=== PATIENT | male | born 1960 | race Caucasian/White ===

== ENCOUNTER 2020-05-29 10:05 | Observation (INO) | payer BC, SELFPAY ==
[2020-05-29] VITALS (16 sets, daily range): BP systolic 133–166; BP diastolic 72–88; PULSE 61–71; RESP 12–22; TEMP 36.2–37; O2SAT 94–100; BMI 33.5; BMI 31.9
--- NOTE | 2020-05-29 10:14 | DI.CT.S_ITS ---
PROCEDURE: CT STROKE INDICATIONS: Right-sided numbness TECHNIQUE: Noncontrast 4.5 mm thick angled axial sections acquired from the foramen magnum to the vertex, with coronal reformats. For radiation dose reduction, the following was used: automated exposure control, adjustment of mA and/or kV according to patient size. COMPARISON: None. FINDINGS: Image quality: Excellent. CSF spaces: Basal cisterns are patent. No extra-axial fluid collections. Ventricles are normal in size and shape. Brain: There is a prominent vessel in the left frontal lobe medially. No midline shift. No intracranial masses or hemorrhage. Rousseau-white matter interface is normal. Skull and face: Calvarium and visualized facial bones are intact, without suspicious lesions. Sinuses: Visualized sinuses and mastoids are clear. IMPRESSION: 1. No acute intracranial abnormalities. 2. Prominent vessel in the left frontal lobe medially. Differential diagnoses include touches left anterior cerebral artery or developmental venous anomaly. CT cerebral angiogram was already requested. This study fulfills neurological imaging criteria for inclusion or exclusion of acute stroke therapies based on available published neurological imaging guidelines. Dictated by: Adalgisa Ashley M.D. on 05/29/2020 at 10:40 Approved by: Adalgisa Ashley M.D. on 05/29/2020 at 10:45
--- NOTE | 2020-05-29 10:15 | ED_ITS ---
HPI - Neuro Symptoms/Deficit General Chief Complaint: Neuro Symptoms/Deficit Stated Complaint: R Arm, Face, Tongue Numbness Time Seen by Provider: 05/29/20 10:06 Source: patient and EMS Mode of arrival: EMS History of Present Illness HPI Narrative: Patient brought in by EMS. Onset 1 hour ago of right tongue numbness as well as complete right arm numbness. No weakness. No slurred speech or facial droop. Had 1 episode yesterday evening 7:00 p.m. that lasted 20 minutes. Denies any medical history. No high blood pressure or diabetes. No family history of strokes. On Anticoagulants: No Related Data Home Medications Medication Instructions Recorded Confirmed dextroamphetamine-amphetamine 10 mg PO QAM 05/29/20 05/29/20 [Adderall XR] Allergies Allergy/AdvReac Type Severity Reaction Status Date / Time doxycycline Allergy Severe Rash Verified 05/29/20 10:14 Review of Systems Review of Systems Narrative: GENERAL: Denies chills, fatigue, malaise, fever, sweats. HEENT: Denies sinus pain, ear pain, sore throat, difficulty swallowing RESPIRATORY: Denies dyspnea, cough CARDIOVASCULAR: Denies chest pain, palpitations, edema, GASTROINTESTINAL: Denies nausea, vomiting, abdominal pain, diarrhea, constipation, melena. : Denies dysuria, frequency, hematuria MUSCULOSKELETAL: denies muscle or bony pain SKIN: Denies rash, skin lesions NEUROLOGIC: Denies weakness, headache, complains numbness, denies change in speech, confusion PSYCHIATRIC: No SI or HI or hallucinations ROS Unobtainable: All systems reviewed & are unremarkable except as noted in HPI and below Patient History Medical History Attention deficit disorder (Acute) GERD (gastroesophageal reflux disease) (Acute) Ocular migraine (Acute) Surgical History History of colonoscopy (Acute) History of umbilical hernia repair (Acute) History of vein stripping (Acute) Family History (Updated 05/30/20 @ 04:41 by CALEB Gracia) Father Cardiovascular disease Mother Asthma Post-polio syndrome Coronary artery disease Social History household members: spouse Smoking Status: Never smoker alcohol intake: current Smoking Status: Never smoker Substance Use Type: does not use Exam Narrative Exam Narrative: GENERAL: patient appears stated age. Well-nourished, well-developed patient, in no distress, not toxic not dyspneic HEAD: Normocephalic. EYES: Pupils equal round and reactive. No scleral icterus. No injection no discharge ENT: Mucous membranes moist. No drooling no tongue elevation no trismus no malocclusion NECK: Trachea midline. Non tender CARDIOVASCULAR: Regular rate and rhythm without murmurs, gallops, or rubs. RESPIRATORY: Clear to auscultation. Breath sounds equal bilaterally. No wheezes, rales, or rhonchi. GASTROINTESTINAL: Abdomen soft, non-tender, nondistended. EXTREMITIES: No gross deformities. BACK: Nontender without deformity or crepitance. No flank tenderness. NEURO: AOx4. Clear speech no facial droop there is light touch deficit on the right arm and hand. Otherwise light touch intact to left upper extremity bilateral legs and face. 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 Negative right drift. Finger- nose intact bilaterally. SKIN: Warm and dry PSYCH: Not anxious, is cooperative Initial Vital Signs Initial Vital Signs: Vital Signs Temperature 98.0 F 05/29/20 10:11 Pulse Rate 70 05/29/20 10:11 Respiratory Rate 16 05/29/20 10:11 Blood Pressure 152/72 H 05/29/20 10:11 Pulse Oximetry 98 05/29/20 10:11 Scores NIH Stroke Scale Level of Conciousness: Alert, keenly responsive Ask month/age: Answers both questions correctly. Open/close eyes, close hand: Performs both tasks correctly Best gaze horizontal: Normal Visual del angel: No visual loss Facial palsy: Normal symetrical movement Left arm drift: No drift for full 10 sec Right arm drift: No drift for full 10 sec Left leg drift: No drift for full 5 sec Right leg drift: No drift for full 5 sec Limb ataxia: Absent Sensory on face/arms/legs: Mild to moderate sensory loss, can tell touch Best language: No aphasia, normal Dysarthria: Normal Extinction or inattention: No abnormality Total NIH Stroke scale score: 1 Course Course Course Narrative: Time 10:39 a.m., spoke with radiologist CT head without contrast no acute process. Decision to Admit Date: 05/29/20 Decision to Admit time: 12:24 Orders Ordered: Discontinued Medications Acetaminophen (Tylenol) 650 mg PO Q6HR PRN PRN Reason: Fever Al Hydrox/Mg Hydrox/Simethicone (Maalox Plus) 30 ml PO Q6HR PRN PRN Reason: Dyspepsia Aspirin (Aspirin Chew) 324 mg PO NOW ONE Stop: 05/29/20 10:41 Last Admin: 05/29/20 11:47 Dose: 324 mg Documented by: TICO Aspirin (Aspirin Ec) 81 mg PO DAILY [facility] Last Admin: 05/30/20 09:20 Dose: 81 mg Documented by: CRISTO Atorvastatin Calcium (Lipitor) 40 mg PO BEDTIME [facility] Last Admin: 05/29/20 21:12 Dose: 40 mg Documented by: YESSY Bisacodyl (Dulcolax) 10 mg NM DAILY PRN PRN Reason: Constipation Calcium Carbonate (Tums) 1,000 mg PO Q4HR PRN PRN Reason: Dyspepsia Enoxaparin Sodium (Lovenox) 40 mg SUBCUT DAILY [facility] Last Admin: 05/30/20 09:20 Dose: 40 mg Documented by: CRISTO Sodium Chloride (Normal Saline 0.9%) 500 mls @ 1,000 mls/hr IV BOLUS ONE Stop: 05/29/20 10:44 Last Infusion: 05/29/20 16:30 Dose: 0 mls/hr Documented by: Admin: 05/29/20 11:48 Dose: 1,000 mls/hr Documented by: TICO Melatonin (Melatonin) 9 mg PO BEDTIME [facility] Last Admin: 05/29/20 22:32 Dose: 9 mg Documented by: NIKKI Naloxone HCl (Narcan) 0.2 mg IV Q2MIN PRN PRN Reason: Opiate Reversal Ondansetron HCl (Zofran) 4 mg IV Q8HR PRN PRN Reason: Nausea And Vomiting Sodium Chloride (Normal Saline 0.9% Flush) 10 ml IV BID [facility] Last Admin: 05/30/20 09:20 Dose: 10 ml Documented by: Admin: 05/29/20 21:12 Dose: 10 ml Documented by: YESSY Reevaluation(s) Reevaluation #1: No new changes. No new issues. Reviewed with patient and understands admission Time: 12:25 Consultations Consultation #1: Spoke with stroke physician, on-call with Dr. Allie Reed... At this time likely no tPA as given low score in symptoms. He will see patient by video now. Time: 11:14 Consultation #2: Spoke with stroke physician Dr. Kelley, he has completed video evaluation of patient. No slurred speech. Vision is baseline. Admit here MRI and echo Time: 11:33 Consultation #3: Spoke with Dr. Gonzalez, hospitalist, will admit Time: 12:25 Vital Signs Vital signs: Vital Signs - 8 hr 05/29/20 10:11 05/29/20 10:27 05/29/20 10:30 Temperature 98.0 F Pulse Rate 70 67 67 Respiratory Rate 16 14 Blood Pressure 152/72 H Pulse Oximetry 98 99 97 05/29/20 10:51 05/29/20 11:00 05/29/20 11:35 Temperature Pulse Rate 64 63 64 Respiratory Rate 12 21 Blood Pressure 142/76 H 140/75 Pulse Oximetry 99 99 99 05/29/20 11:36 Temperature Pulse Rate 61 Respiratory Rate 14 Blood Pressure 161/78 H Pulse Oximetry 98 MDM - Neuro Symptoms/Deficit Differential Diagnosis Differential diagnosis: Likely cerebrovascular accident and transient cerebral ischemia Lab Data Attestation: I reviewed the patient's lab results. Result diagrams: 05/30/20 05:53 05/30/20 05:53 Labs: Lab Results 05/29/20 05/29/20 05/29/20 Range/Units 10:15 10:15 10:15 WBC 5.5 (4.5-11.0) X10^3/uL RBC 5.77 (4.5-5.9) X10^6/uL Hgb 17.0 (13.5-17.5) g/dL Hct 49.5 (41-53) % MCV 85.7 (80-100) fL MCH 29.4 (26-34) PG MCHC 34.3 (30-36) % RDW 13.3 (11.6-14.8) % Plt Count 156 (150-400) X10^3/uL Neut % (Auto) 62.8 (50-75) % Lymph % (Auto) 25.8 (25-40) % Smith % (Auto) 8.3 (3-14) % Eos % (Auto) 2.3 (2-4) % Baso % (Auto) 0.8 (0-2) % Neut # (Auto) 3400 (1014-3895) /uL Lymph # (Auto) 1400 (6905-2587) /uL Smith # (Auto) 500 (0-900) /uL Eos # (Auto) 100 (0-450) /uL Baso # (Auto) 0 (0-100) /uL PT 12.1 (10.1-12.7) SECONDS INR 1.0 (0.9-1.3) APTT 33 (26.4-36.2) SECONDS Sodium 138 (137-145) mmol/L Potassium 4.2 (3.4-5.1) mmol/L Chloride 104 (98-107) mmol/L Carbon Dioxide 29 (22-32) mmol/L BUN 20 (9-20) mg/dL Creatinine 1.06 (0.66-1.25) mg/dL Estimated GFR > 60.0 (>60) mL/min BUN/Creatinine Ratio 18.9 (6-22) Glucose 104 H (70-100) mg/dL Calcium 9.4 (8.4-10.2) mg/dL Total Bilirubin 0.7 (0.2-1.3) mg/dL AST 38 (17-59) IU/L ALT 49 (<50) IU/L Alkaline Phosphatase 67 (38-126) U/L Total Creatine Kinase 119 (55-170) U/L CK-MB (CK-2) 1.26 (<2.37) ng/mL CK-MB (CK-2) Rel Index 1.1 L (1.5-5.0) % Troponin I < 0.012 (0.01-0.034) ng/mL Total Protein 7.6 (6.3-8.2) g/dL Albumin 4.3 (3.5-5.0) g/dL Globulin 3.3 (1.7-4.1) g/dL Albumin/Globulin Ratio 1.3 (1.0-2.8) Urine Color Urine Appearance Urine pH (4.5-8.0) Ur Specific [place] (1.000-1.035) Urine Protein (Negative) Urine Glucose (UA) (Negative) g/dL Urine Ketones (NEGATIVE) Urine Occult Blood (Negative) Urine Nitrate (Negative) Urine Bilirubin (NEGATIVE) Urine Urobilinogen (0.2) E.U./dL Ur Leukocyte Esterase (NEGATIVE) Urine RBC (0-5/HPF) Urine WBC (0-5/HPF) Urine Bacteria (None) Ur Culture Indicated? Micro UA Comment U Opiates 300ng/mL cut (Negative) Ur Oxycodone Screen (Negative) Urine Methadone Screen (Negative) Ur Barbiturates Screen (Negative) U Tricyclic Antidepress (Negative) Ur Phencyclidine Scrn (Negative) Ur Amphetamines Screen (Negative) U Methamphetamines Scrn (Negative) Ur MDMA Scrn (Ecstasy) (Negative) U Benzodiazepines Scrn (Negative) Urine Cocaine Screen (Negative) U Marijuana (THC) Screen (Negative) COVID-19 PCR (Negative) 05/29/20 05/29/20 05/29/20 Range/Units 11:10 11:35 11:35 WBC (4.5-11.0) X10^3/uL RBC (4.5-5.9) X10^6/uL Hgb (13.5-17.5) g/dL Hct (41-53) % MCV (80-100) fL MCH (26-34) PG MCHC (30-36) % RDW (11.6-14.8) % Plt Count (150-400) X10^3/uL Neut % (Auto) (50-75) % Lymph % (Auto) (25-40) % Smith % (Auto) (3-14) % Eos % (Auto) (2-4) % Baso % (Auto) (0-2) % Neut # (Auto) (5556-0256) /uL Lymph # (Auto) (0537-1886) /uL Smith # (Auto) (0-900) /uL Eos # (Auto) (0-450) /uL Baso # (Auto) (0-100) /uL PT (10.1-12.7) SECONDS INR (0.9-1.3) APTT (26.4-36.2) SECONDS Sodium (137-145) mmol/L Potassium (3.4-5.1) mmol/L Chloride (98-107) mmol/L Carbon Dioxide (22-32) mmol/L BUN (9-20) mg/dL Creatinine (0.66-1.25) mg/dL Estimated GFR (>60) mL/min BUN/Creatinine Ratio (6-22) Glucose (70-100) mg/dL Calcium (8.4-10.2) mg/dL Total Bilirubin (0.2-1.3) mg/dL AST (17-59) IU/L ALT (<50) IU/L Alkaline Phosphatase (38-126) U/L Total Creatine Kinase (55-170) U/L CK-MB (CK-2) (<2.37) ng/mL CK-MB (CK-2) Rel Index (1.5-5.0) % Troponin I (0.01-0.034) ng/mL Total Protein (6.3-8.2) g/dL Albumin (3.5-5.0) g/dL Globulin (1.7-4.1) g/dL Albumin/Globulin Ratio (1.0-2.8) Urine Color Yellow Urine Appearance Clear Urine pH 7.5 (4.5-8.0) Ur Specific [place] <=1.005 (1.000-1.035) Urine Protein Negative (Negative) Urine Glucose (UA) Negative (Negative) g/dL Urine Ketones Negative (NEGATIVE) Urine Occult Blood Negative (Negative) Urine Nitrate Negative (Negative) Urine Bilirubin Negative (NEGATIVE) Urine Urobilinogen 0.2 (0.2) E.U./dL Ur Leukocyte Esterase Negative (NEGATIVE) Urine RBC None seen (0-5/HPF) Urine WBC None seen (0-5/HPF) Urine Bacteria None seen (None) Ur Culture Indicated? Cult not indicated Micro UA Comment Microscopic normal U Opiates 300ng/mL cut Negative (Negative) Ur Oxycodone Screen Negative (Negative) Urine Methadone Screen Negative (Negative) Ur Barbiturates Screen Negative (Negative) U Tricyclic Antidepress Negative (Negative) Ur Phencyclidine Scrn Negative (Negative) Ur Amphetamines Screen Negative (Negative) U Methamphetamines Scrn Negative (Negative) Ur MDMA Scrn (Ecstasy) Negative (Negative) U Benzodiazepines Scrn Negative (Negative) Urine Cocaine Screen Negative (Negative) U Marijuana (THC) Screen Negative (Negative) COVID-19 PCR Negative (Negative) ECG Data Attestation: I personally reviewed and interpreted this ECG as follows: Interpretation: Normal sinus rhythm rate [address] elevation or depression. Normal EKG MDM Narrative Medical decision making narrative: Appropriate for admission for further evaluation for TIA/stroke including MRI and echocardiogram in observation Discharge Plan Departure Patient Disposition: Admitted as Observation Clinical Impression: Transient cerebral ischemia Qualifiers: Transient cerebral ischemia type: unspecified Qualified Code(s): G45.9 - Transient cerebral ischemic attack, unspecified Discharge Date/Time: 05/29/20 13:53 Instructions: Transient Ischemic Attack Admit Date/Time: 05/29/20 12:27 Admit Provider: Nemo Gonzalez
--- NOTE | 2020-05-29 10:15 | DI.CT.S_ITS ---
PROCEDURE: CT ANGIO HEAD AND NECK INDICATIONS: Right-sided numbness TECHNIQUE: Images are repeated, with some improvement. After the administration of intravenous contrast, 1 mm thick sections acquired from the aortic arch through the [place]. Post-contrast 4.5 mm thick sections then re-acquired from the foramen magnum to the vertex. 3-dimensional jtliqnu-quvahxcqh-jzutnnbdga (MIP) and/or volume rendering reformats were acquired of the central intracranial vasculature and neck separately. COMPARISON: [facility], CT, CT STROKE, 05/29/2020, 10:15. FINDINGS: Image quality: Excellent. BRAIN: CSF spaces: Ventricles are normal in size and shape. Basal cisterns are patent. No extra-axial fluid collections. Brain: No midline shift. No intracranial bleeds or masses. Rousseau-white matter interface appears intact. Skull and face: Calvarium and facial bones appear intact, without suspicious lesions. Orbits appear normal. Sinuses: Sinuses and mastoids are clear. HEAD CT ANGIOGRAPHY: Anterior circulation: Intracranial internal carotid arteries are normal in size and flow. The flow within the paired anterior cerebral arteries is normal and symmetric. The flow within the middle cerebral arteries is normal and symmetric. The anterior communicating artery is not well seen. No aneurysms are seen. Posterior circulation: Visualized portions of the vertebral arteries demonstrate normal caliber, with the right vertebral artery dominant to the left. The left vertebral artery largely terminates in the left posterior inferior cerebellar artery. There is a normal appearing basilar artery. Bilateral type origins of the posterior cerebral arteries can be seen. Flow within the posterior cerebral arteries is normal and symmetric. No aneurysms are seen. NECK CT ANGIOGRAPHY: Carotid system: The great vessels demonstrate a conventional anatomy as they arise from the aortic arch. The origins of the common carotid arteries appear patent. The common carotid arteries demonstrate normal caliber and courses. The bifurcation regions are both widely patent. The internal carotid arteries demonstrate normal calibers and courses. Posterior circulation: The origins of the vertebral arteries both appear widely patent. The more superior extracranial portions of both vertebral arteries also demonstrate normal courses and calibers, with the right vertebral artery dominant to the left Soft tissues: Visualized neck soft tissues demonstrate no suspicious abnormalities. Bones: No suspicious bony lesions. Visualized cervical spine appears normally aligned. IMPRESSION: No significant intracranial arterial abnormality is seen. Within the arteries of the neck, no hemodynamically significant stenosis can be seen. If it would be helpful for clinical management decision making, please consider a dedicated brain MRI for further evaluation (assuming that there is no contraindication). Any quantitative measurements of stenosis were performed using NASCET criteria. Dictated by: Serge Zaragoza M.D. on 05/29/2020 at 9:43 Approved by: Serge Zaragoza M.D. on 05/29/2020 at 9:46
[2020-05-29 10:24] LABS: Add Manual Diff / Slide Review NO; Basophils Absolute Auto 0 /uL (0-100); Basophils Percent Auto 0.8 % (0-2); Eosinophils Absolute Auto 100 /uL (0-450); Eosinophils Percent Auto 2.3 % (2-4); Hematocrit 49.5 % (41-53); Lymphocytes Absolute Auto 1400 /uL (1100-4500); Lymphocytes Percent Auto 25.8 % (25-40); Mean Corpuscular HGB Conc 34.3 % (30-36); Mean Corpuscular Hemoglobin 29.4 PG (26-34); Mean Corpuscular Volume 85.7 fL (80-100); Monocytes Absolute Auto 500 /uL (0-900); Monocytes Percent Auto 8.3 % (3-14); Neutrophils Absolute Auto 3400 /uL (1500-7000); Neutrophils Percent Auto 62.8 % (50-75); Platelet Count 156 X10^3/uL (150-400); Red Blood Cell Count 5.77 X10^6/uL (4.5-5.9); Red Cell Distribution Width 13.3 % (11.6-14.8); White Blood Cell Count 5.5 X10^3/uL (4.5-11.0)
[2020-05-29 10:33] LABS: Prothrombin Time 12.1 SECONDS (10.1-12.7)
[2020-05-29 10:35] LABS: PTT Partial Thromboplastin Tim 33 SECONDS (26.4-36.2)
[2020-05-29 10:38] LABS: Chloride 104 mmol/L (98-107); HEMOLYSIS < 15 (0-50)
[2020-05-29 10:39] LABS: Alanine Aminotransferase 49 IU/L (<50); Albumin 4.3 g/dL (3.5-5.0); Albumin Globulin Ratio 1.3 (1.0-2.8); Alkaline Phosphatase 67 U/L (38-126); Aspartate Aminotransferase 38 IU/L (17-59); BUN Creatinine Ratio 18.9 (6-22); Bilirubin Total 0.7 mg/dL (0.2-1.3); Blood Urea Nitrogen 20 mg/dL (9-20); Calcium 9.4 mg/dL (8.4-10.2); Carbon Dioxide 29 mmol/L (22-32); Creatine Kinase 119 U/L (55-170); Estimated Glomerular Filt Rate > 60.0 mL/min (>60); Globulin 3.3 g/dL (1.7-4.1); Glucose 104 mg/dL (70-100); Potassium 4.2 mmol/L (3.4-5.1); Sodium 138 mmol/L (137-145); Total Protein 7.6 g/dL (6.3-8.2)
[2020-05-29 10:51] LABS: Troponin I < 0.012 ng/mL (0.01-0.034)
[2020-05-29 10:55] LABS: CKMB % Relative Index 1.1 % (1.5-5.0); Creatine Kinase MB 1.26 ng/mL (<2.37)
[2020-05-29 11:32] LABS: COVID19 -Nasal RAPID Negative (Negative)
[2020-05-29 11:44] LABS: Bacteria Urine None Seen; RBC Urine None Seen (0-5/HPF); WBC Urine None Seen (0-5/HPF)
[2020-05-29 11:45] LABS: Appearance Urine UA CLEAR; Bilirubin Urine UA NEGATIVE (NEGATIVE); Color Urine UA YELLOW; Glucose Urine UA NEGATIVE (Negative); Ketones Urine UA NEGATIVE (NEGATIVE); Leukocyte Esterase Urine UA NEGATIVE (NEGATIVE); Nitrite Urine UA NEGATIVE (Negative); Occult Blood Urine UA NEGATIVE (Negative); Protein Urine UA NEGATIVE (Negative); Specific Gravity Urine UA <=1.005 (1.000-1.035); Urobilinogen Urine UA 0.2 E.U./dL (0.2); pH Urine UA 7.5 (4.5-8.0)
[2020-05-29] MEDS: ASPIRIN 81 MG CHEW TAB 324 MG PO (11:47)
[2020-05-29] MEDS: SODIUM CHLORIDE 0.9% 500 ML 1000 ML IV (11:48)
[2020-05-29 11:52] LABS: Ur Creatinine Normal (Normal); Ur Specific Gravity Normal (Normal); Urine pH Normal (Normal)
[2020-05-29 11:54] LABS: UR Morphine/Opiate cutoff 300 Negative (Negative); Urine Amphetamines Negative (Negative); Urine Barbiturates Negative (Negative); Urine Benzodiazepines Negative (Negative); Urine Cocaine Negative (Negative); Urine MDMA Negative (Negative); Urine Methadone Negative (Negative); Urine Methamphetamines Negative (Negative); Urine Oxycodone Negative (Negative); Urine Phencyclidine Negative (Negative); Urine Tetrahydrocannabinol Negative (Negative); Urine Tricyclic Antidepressant Negative (Negative)
[2020-05-29 11:56] LABS: Culture Indicated Urine Cult Not Indicated; Urine Comments Microscopic Normal
--- NOTE | 2020-05-29 13:33 | DI.MRI.S_ITS ---
PROCEDURE: MR STROKE Pre- and post-contrast brain MRI, non-contrast brain MR angiogram, pre- and postcontrast neck MR angiogram INDICATIONS: TIA TECHNIQUE: Brain: Noncontrast axial T1 spin echo, axial T2 fast spin echo, sagittal and axial FLAIR, coronal T2 fast spin echo, axial gradient echo, axial diffusion and ADC through the brain. After the administration of contrast, axial 3D VIBE of the cranial vasculature and brain. Brain MRA: Non-contrast 3-D time of flight MR angiogram, with multiple emvsnij-jqsgmybsq-vioyjaigwb (MIP) reformats performed. Neck MRA: Axial and sagittal TruFISP through the neck. Coronal dynamic MR angiogram during administration of contrast in the arterial and venous phases, with 3-dimenstional irzxmox-garweginr-eiemztzrgl (MIP) reformats constructed from subtraction images. COMPARISON: [facility], CT, CT ANGIO HEAD AND NECK, 05/29/2020, 10:15. [facility], CT, CT STROKE, 05/29/2020, 10:15. FINDINGS: Image quality: Excellent. BRAIN: CSF spaces: Ventricles are normal in size and shape. Basal cisterns are patent. No extra-axial fluid collections. Brain: No intracranial bleeds or mass effects. There is mild, diffuse cerebral volume loss. There is minimal frontal subcortical white matter chronic microvascular ischemic change. Rousseau-white matter interface is normal. Diffusion weighted images show no acute ischemic insults. No abnormal GRE weighted artifact identified in the brain parenchyma. 1.1 centimeter in maximum diameter focus of increased T2 signal noted in the anterior right temporal lobe. There is a 3 millimeter cyst at the anterior margin of the T2 signal abnormality in the right anterior temporal lobe. No postcontrast enhancement associated with the signal abnormality in the right temporal lobe. No local mass effect associated with the area of signal abnormality in the right temporal lobe. Brainstem appears normal. Normal intravascular flow voids are present. Normal postcontrast enhancement of the dural sinuses. No abnormal intracranial enhancement. Skull and face: Calvarial marrow signal is normal. Orbits appear normal. Sinuses: Sinuses and mastoids are clear. BRAIN MR ANGIOGRAM: Anterior circulation: Intracranial internal carotid arteries are normal in size and enhancement. The flow within the paired anterior cerebral arteries is normal and symmetric. The flow within the middle cerebral arteries is normal and symmetric. The anterior communicating artery is seen. No stenoses, occlusions, or aneurysms. Posterior circulation: The visualized portions of the vertebral arteries demonstrate normal caliber, and join to form a normal appearing basilar artery. The flow within the posterior cerebral arteries is normal and symmetric. Left posterior cerebral artery has a origin. No stenoses, occlusions, or aneurysms. NECK MR ANGIOGRAM: Carotids: Great vessels demonstrate a conventional anatomy as they arise from the aortic arch. The origins of the common carotid arteries appear patent. The calibers and courses of both common carotid arteries are normal. The bifurcation regions appear normal bilaterally. The internal carotid arteries demonstrate normal course and caliber. Posterior circulation: The origins of the vertebral arteries appear patent. Left vertebral artery terminates in a left posterior inferior cerebral artery. Patient is right vertebral artery dominant. Normal flow noted in the basilar artery. Miscellaneous: Subclavian arteries appear patent. Pre-contrast images through the neck show no soft tissue abnormalities. IMPRESSION: BRAIN MRI: 1. No areas of acute or chronic infarction. 2. Small focus of increased T2 signal with associated 3 millimeter cyst in the anterior right temporal lobe. Finding could represent a neoplastic process . Recommend follow-up MRI of the brain and 1 month and 3 months to confirm stability of the finding. 3. No intracranial hemorrhage. 4. Mild, diffuse cerebral volume loss. 5. Minimal frontal subcortical white matter chronic microvascular ischemic change. BRAIN MR ANGIOGRAM: Negative examination. NECK MR ANGIOGRAM: Negative examination. Dictated by: Shannan Jiménez MD, PhD on 05/29/2020 at 15:03 Approved by: Shannan Jiménez MD, PhD on 05/29/2020 at 15:22
--- NOTE | 2020-05-29 14:29 | PC.NURSE ---
Pt arrived via ED with c/o right facial and droop and right hand weakness. Pt is alert and oriented and scored ) on NIH SS. Pt states he does have a lisps but otherwise feels he is back to normal. Pt states is on her way. Pt placed on Tele on arrival. Latonya from MRI is now here and Pt is being readied. Pt to MRI Presently. ICU aware. Pt's wallet placed in floor safe while he is down in MRI. to take wallet home when she arrives.
--- NOTE | 2020-05-29 15:07 | PT.IIE ---
Physical Therapy Inpatient Evaluation/Re-Eval M1 PT/OT-IP Prior Functional Status Start: 05/29/20 16:14 Freq: NEEDED Status: Active Protocol: Document 05/29/20 15:07 AB (Rec: 05/29/20 16:26 AB [email or web address]) Medical Review Prior Functional Status Medical History Reviewed Yes Communication able to make needs known Mobility and Gait pt stated that he is independent with all mobilities and ambulation without AD Social History Household Members spouse Living Arrangements House Number of Floors (Floors) One Floor Number of Stairs To Enter/Railing? 2 steps with L rail ascending to enter Home Environment Standard Height Toilet,Tub/ Shower Home Equipment Hand Held Shower,Grab Bars In Shower Additional Social History Comment has an adjustable bed but pt sleeps on his recliner currently due to spouse just had lumpectomy M2 PT-IP Current Condition Start: 05/29/20 16:14 Freq: NEEDED Status: Active Protocol: Document 05/29/20 15:07 AB (Rec: 05/29/20 16:26 AB [email or web address]) Physical Therapy Current Condition Current Condition Evaluation Date 05/29/20 Treatment Diagnosis TIA; difficulty in walking Onset Date 05/29/20 M3 PT-IP Subjective Start: 05/29/20 16:14 Freq: NEEDED Status: Active Protocol: Document 05/29/20 15:07 AB (Rec: 05/29/20 16:26 [email or web address]) Subjective Physical Therapy Visit Type Type Initial Evaluation Visit Start Time 15:07 Visit Stop Time 15:22 Total Visit Minutes 15 Number 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 [employer]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 Visits 0 Physical Therapy Visit Comments Patient Comments pt is agreeable to do PT Therapy Pain Assessment Pain Present Pain Present Denied Pain M4 PT-IP Mobility and Gait Start: 05/29/20 16:14 Freq: NEEDED Status: Active Protocol: Document 05/29/20 15:07 AB (Rec: 05/29/20 16:26 AB [email or web address]) PT-Bed Mobility Assessment Supine to Sit Supine to Sit Independent Sit to Supine Sit to Supine Independent Scooting Scooting to Edge of Bed Independent PT-Transfer Assessment Sit to and From Stand Sit to and from Stand Independent Equipment Transfer Assistive Device None Comments Mobility Comments completed supine to sit independent. ambulated without AD supervision for safety. able to ambulate in the hallway without AD ~ 75 ft and completed up/down stairs with L rail supervision. ambulated back to room supervision and got back to bed independent. pt without any LOB. Left pt with spouse, nurse in room. call light within reach . informed pt and spouse that pt is at PLOF and no further PT intervention indicated at this time. Gait Assessment Gait Gait Assistance Required: Standby Assistance Distance (Feet) 75 Able to Maintain Weight Bearing Status No During Gait Assistive Devices Assistive Device None Gait Deviations General Gait Pattern Antalgic Comments Gait Comments ambulated with slight antalgic gait but without LOB. supervision provided for safety Stair Climbing Assessment Evaluation Level of Assist On Stairs Standby Assistance Devices Stair Climbing Assistive Devices Left Railing Technique/Endurance Stair Climbing Direction Ascend and Descend Stair Climbing Technique Step Over Step Number of Steps Climbed 3 Query Text: Stair Climbing Set # Repetitions (reps) 1 PT-Balance Assessment Sitting Balance and Reactions Static Sitting Balance Ability Normal Dynamic Sitting Balance Ability Normal Standing Balance and Reactions Static Standing Balance Ability Good Dynamic Standing Balance Ability Good Device Used without AD M5 PT-IP Objective Assessments Start: 05/29/20 16:14 Freq: NEEDED Status: Active Protocol: Document 05/29/20 15:07 (Rec: [facility]/29/20 [facility] Orientation Orientation/Cognition Level of Alertness Alert Orientation Name,Age,Birthday,Month,Date, Year,Day of Week,Place, Situation Language Function Ability No Deficits Noted Safety Awareness Understands Safety Issues Memory Description No Deficits Noted Gross Range of Motion Lower Extremity ROM Assessment Within Functional Limits Strength Lower Extremity Strength Assessment Within Functional Limits Coordination Assessment Gross Coordination Gross Coordination WNL Sensation Assessment Sensation Light Touch Intact Sensation Description Numbness Comments Sensation Comments pt able to distinguish light touch sensation but stated slight numbness on R face and arm but trunk and LE are normal Muscle Tone Muscle Tone WNL Yes M6 PT-IP Treatment Start: 05/29/20 16:14 Freq: NEEDED Status: Active Protocol: Document 05/29/20 15:07 AB (Rec: 05/29/20 16:26 [email or web address]) Physical Therapy Treatment Education Education Provided Safety M7 PT-IP Assessment and Plan Start: 05/29/20 16:14 Freq: NEEDED Status: Active Protocol: Document 05/29/20 15:07 AB (Rec: 05/29/20 16:26 [id number]) PT Summary Assessment and Plan Potential Rehabilitation Potential Good Status of Condition at Evaluation Stable Summary Assessment Summary pt requires supervision for safety at this time but has no LOB during transfers and ambulation. pt plans to go home with spouse. pt stated that he does not feel weak but c/o slight numbness on the face and RUE but stated that sensation is coming back. No further PT intervention indicated at this time. Frequency of Treatment Frequency Of Treatment Discharge Recommendations To Nursing Amount of Assist Needed Standby Assistance Discharge Recommendations PT Discharge Recommendations Home with Assistance Transportation Needs at Discharge Private Vehicle
[2020-05-29] MEDS: ATORVASTATIN 20 MG TABLET 40 MG PO (21:12)
[2020-05-29] MEDS: SODIUM CHLORIDE 0.9% FLUSH 10 ML IV (21:12)
[2020-05-29] MEDS: MELATONIN 3 MG TABLET 9 MG PO (22:32)
[2020-05-30 00:25] VITALS: O2SAT 96
--- NOTE | 2020-05-30 04:08 | PM.HP.1 ---
History of Present Illness History of Present Illness Date Patient Seen: 05/29/20 Time Patient Seen: 20:45 Chief complaint: R Arm, Face, Tongue Numbness Narrative: Mr. Brandan Price is a 59-year-old male with a past medical history of ocular migraines and GERD who presents to the hospital with complaints of right [place] and right arm numbness. The patient states his symptoms began 1 hour prior to arrival and had mostly resolved continue to persist with pins and needles to the right face. Patient reports having a similar episode yesterday evening that lasted for approximately 2-3 hours and completely resolving. The patient endorses a history of migraines originally presenting as severe headache with associated nausea vomiting was trialed that later progressed to an ocular manifestation with scotomas. The patient states that the episode yesterday in today's episode appeared to be the same in presentation only today's event is not completely resolved. The patient denies complaints of headache but does report right eye aching. He denies photophobia or phonophobia. He has had no neck or back pain. He denies complaints of ataxia, speech difficulties or difficulty swallowing. 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 The patient denies recent complaints of illness, flu or cold symptoms and has had no fevers or chills, nasal congestion or sore throat. Denies chest pain or palpitations, he reports undergoing a full battery of cardiac testing due to his pronounced family history of cardiovascular disease.. Reports no shortness of breath cough or wheezing. He has no abdominal pain and has had no nausea vomiting and denies diarrhea or constipation. The patient is independent in all activities daily living and uses no assistive devices. Upon arrival to the ER the patient is afebrile with temperature 98.0?, heart rate of 70, blood pressure 152/72, respirations 16 saturating 98% on room air. Patient had a CT of the brain which finds no acute abnormalities other identifies a prominent vessel in the medial left frontal lobe. CT angio is unremarkable for intracranial arterial abnormalities. MRI of the brain stroke protocol of finds no acute or chronic infarct, small focus of increased T2 signal with associated 3 mm cyst in the anterior right temporal lobe, finding could represent a neoplastic process, no intracranial hemorrhage, mild diffuse cerebral volume loss, minimal frontal subcortical white matter chronic microvascular ischemic changes. On laboratory analysis the patient has white count of 5.5, hemoglobin is 17.0, hematocrit of 49.5 and platelets 106. Has a PT of 12 1, INR 1.0 and PTT of 33. His electrolytes are all within normal limits has a BUN of 20 and a creatinine of 1.06. His nonfasting glucose is 104. Liver functions are all within normal limits. His total CK is 119 with this CK-MB of 1.26, with an index of 1.1. Troponin is negative at less than 0.012. Urinalysis negative for infection and UDS negative. The patient is admitted to the medicine service for further evaluation neurological deficits concerning for TIA versus complex migraine. Patient History Medical History Attention deficit disorder (Acute) GERD (gastroesophageal reflux disease) (Acute) Ocular migraine (Acute) Surgical History History of colonoscopy (Acute) History of umbilical hernia repair (Acute) History of vein stripping (Acute) Family & Social History Family History (Updated 05/30/20 @ 04:41 by CALEB Gracia) Father Cardiovascular disease Mother Asthma Post-polio syndrome Coronary artery disease Social History: household members spouse Prior Living Arrangements House Safety & Behavioral: Feels Safe in Current Yes Environment Been Physically Hurt or No Threatened By a Person Suicidal Ideation Description None Suicide Plan Description No Plan Tobacco & Substance use: Smoking Status Never smoker alcohol intake current alcohol intake frequency a few times a month Substance Use Type does not use Meds Home Medications and Allergies Home Medications Medication Instructions Recorded Confirmed Type dextroamphetamine-amphetamine 10 mg PO QAM 05/29/20 05/29/20 History [Adderall XR] Allergies Allergy/AdvReac Type Severity Reaction Status Date / Time doxycycline Allergy Severe Rash Verified 05/29/20 10:14 Review of Systems Review of Systems ROS: Yes All systems reviewed with the patient and are negative except as otherwise documented Exam Vital Signs (past 8 hours): - 05/29/20 23:57 05/30/20 00:25 Temperature 97.1 F L Pulse Rate 63 Respiratory Rate 20 Blood Pressure 142/88 H Pulse Oximetry 96 96 Oxygen Delivery Method Room Air Narrative Exam Narrative: GENERAL APPEARANCE: well developed, obese male sitting semi recumbent in bed, in no acute distress. HEENT: Normocephalic, symmetrical facies, PERRLA, conjunctiva clear, sclera anicteric, EOMs intact without nystagmus, facial sensation intact and symmetrical, no rhinorrhea, mucous membranes are moist and pink without lesions or exudate, uvula midline. NECK/THYROID: neck supple, no JVD, no carotid bruit, no thyromegaly, trachea midline. LYMPH NODES: no cervical or supraclavicular lymphadenopathy. SKIN: [place], warm and dry, no visible lesions, rashes, ulcerations or petechiae. HEART: regular rate and rhythm, S1-S2, no murmur, no rubs or gallops, brisk capillary refill, no edema LUNGS: clear to auscultation bilaterally, no coarseness crackles or wheezing, no cough present CHEST: Symmetrical movement, no accessory muscle use, good tidal volume. ABDOMEN: Soft, mildly protuberant, no distention, no abdominal tenderness, no organomegaly, no flank or suprapubic tenderness, active bowel tones. EXTREMITIES: moves all extremities, BUE and BLE E strength is 5/5 and symmetrical, no deformities or joint effusions. NEUROLOGIC: AAO x 3, slight slurring of words, no ptosis, face symmetrical with no facial droop, cranial nerves II-XII grossly intact, facial sensation intact to light touch in all facial branches however patient describes pins and needles to touch, hearing grossly normal to speech. PSYCH: Good eye contact, linear thought process, stable affect and behavior. Objective Labs Result Diagrams: 05/29/20 10:15 05/29/20 10:15 Labs: Laboratory Results - last 24 hr 05/29/20 05/29/20 05/29/20 10:15 10:15 10:15 WBC 5.5 RBC 5.77 Hgb 17.0 Hct 49.5 MCV 85.7 MCH 29.4 MCHC 34.3 RDW 13.3 Plt Count 156 Neut % (Auto) 62.8 Lymph % (Auto) 25.8 [place] % (Auto) 8.3 Eos % (Auto) 2.3 Baso % (Auto) 0.8 Neut # (Auto) 3400 Lymph # (Auto) 1400 [place] # (Auto) 500 Eos # (Auto) 100 Baso # (Auto) 0 PT 12.1 INR 1.0 APTT 33 Sodium 138 Potassium 4.2 Chloride 104 Carbon Dioxide 29 BUN 20 Creatinine 1.06 Estimated GFR > 60.0 BUN/Creatinine Ratio 18.9 Glucose 104 H Calcium 9.4 Total Bilirubin 0.7 AST 38 ALT 49 Alkaline Phosphatase 67 Total Creatine Kinase 119 CK-MB (CK-2) 1.26 CK-MB (CK-2) Rel Index 1.1 L Troponin I < 0.012 Total Protein 7.6 Albumin 4.3 Globulin 3.3 Albumin/Globulin Ratio 1.3 Urine Color Urine Appearance Urine pH Ur Specific [place] Urine Protein Urine Glucose (UA) Urine Ketones Urine Occult Blood Urine Nitrate Urine Bilirubin Urine Urobilinogen Ur Leukocyte Esterase Urine RBC Urine WBC Urine Bacteria Ur Culture Indicated? Micro UA Comment U Opiates 300ng/mL cut Ur Oxycodone Screen Urine Methadone Screen Ur Barbiturates Screen U Tricyclic Antidepress Ur Phencyclidine Scrn Ur Amphetamines Screen U Methamphetamines Scrn Ur MDMA Scrn (Ecstasy) U Benzodiazepines Scrn Urine Cocaine Screen U Marijuana (THC) Screen COVID-19 PCR 05/29/20 05/29/20 05/29/20 11:10 11:35 11:35 WBC RBC Hgb Hct MCV MCH MCHC RDW Plt Count Neut % (Auto) Lymph % (Auto) [place] % (Auto) Eos % (Auto) Baso % (Auto) Neut # (Auto) Lymph # (Auto) [place] # (Auto) Eos # (Auto) Baso # (Auto) PT INR APTT Sodium Potassium Chloride Carbon Dioxide BUN Creatinine Estimated GFR BUN/Creatinine Ratio Glucose Calcium Total Bilirubin AST ALT Alkaline Phosphatase Total Creatine Kinase CK-MB (CK-2) CK-MB (CK-2) Rel Index Troponin I Total Protein Albumin Globulin Albumin/Globulin Ratio Urine Color Yellow Urine Appearance Clear Urine pH 7.5 Ur Specific [place] <=1.005 Urine Protein Negative Urine Glucose (UA) Negative Urine Ketones Negative Urine Occult Blood Negative Urine Nitrate Negative Urine Bilirubin Negative Urine Urobilinogen 0.2 Ur Leukocyte Esterase Negative Urine RBC None seen Urine WBC None seen Urine Bacteria None seen Ur Culture Indicated? Cult not indicated Micro UA Comment Microscopic normal U Opiates 300ng/mL cut Negative Ur Oxycodone Screen Negative Urine Methadone Screen Negative Ur Barbiturates Screen Negative U Tricyclic Antidepress Negative Ur Phencyclidine Scrn Negative Ur Amphetamines Screen Negative U Methamphetamines Scrn Negative Ur MDMA Scrn (Ecstasy) Negative U Benzodiazepines Scrn Negative Urine Cocaine Screen Negative U Marijuana (THC) Screen Negative COVID-19 PCR Negative Assessment & Plan Assessment & Plan narrative: This is a 59-year-old male patient who presents to the ER with 1 hour of right tongue and right arm numbness with a similar episode the evening before. 1. Neurological deficits, TIA versus complex/hemiplegic migraine, acute, present on admission, active. -the patient has 2 episodes of right-sided facial tongue and arm numbness last night and again today. He describes associated right eye pain without visual changes. NIH-2: facial sensation and slight dysarthria. -CT of the brain finds a prominent vessel in the medial left frontal lobe but no locus of inflammation, CTA is negative for intracranial arterial abnormalities, MRI of the brain stroke protocol of finds no acute or chronic infarct, small focus of increased T2 signal with associated 3 mm cyst in the anterior right temporal lobe, finding could represent a neoplastic process, no intracranial hemorrhage. Radiology recommends reimaging in 1-3 months however this lesion not produce the symptoms the patient describes. -patient received aspirin 324 mg in the ER will continue aspirin 81 mg daily. -ordered atorvastatin 40 mg daily. -ordered TSH with reflex T4, hemoglobin A1c lipid panel. -ordered echocardiogram, will obtain medical records from patient's cardiac workup and stress test completed at [facility]. 2. GERD, chronic, stable -patient denies epigastric pain, nausea vomiting. -stable condition will monitor 3. Attention deficit disorder, chronic, stable. -will continue patient's home regimen of Adderall XR 10 mg daily. VTE prophylaxis: Enoxaparin IV fluid: Saline lock Diet: Heart healthy Code status: Full code, the patient designates his Anyi to be surrogate decision maker. The patient is admitted to the hospital due to the severity of his symptoms in the need for further monitoring and testing. The patient is admitted as observation with expected length of stay to be less than 2 midnights. COVID-19 COVID-19 status: Negative Result date/Date tested (Pos, Neg/Pending): 05/29/20 Scores NIHSS Level of Conciousness: Alert, keenly responsive Ask month/age: Answers both questions correctly. Open/close eyes, close hand: Performs both tasks correctly Best gaze horizontal: Normal Visual del angel: No visual loss Facial palsy: Normal symetrical movement Left arm drift: No drift for full 10 sec Right arm drift: No drift for full 10 sec Left leg drift: No drift for full 5 sec Right leg drift: No drift for full 5 sec Limb ataxia: Absent Sensory on face/arms/legs: Mild to moderate sensory loss, can tell touch Best language: No aphasia, normal Dysarthria: Mild to mod,some slurring Extinction or inattention: No abnormality Total NIH Stroke scale score: 2 Quality VTE Deep Vein Thrombosis/Pulmonary Embolism Present on Admission: No
--- NOTE | 2020-05-30 04:38 | PC.NURSE ---
CALEB Marinelli notified that patient's tele was bereket earlier high 30's & low 40's. Checked pt. he was sound asleep, denies any dizziness. NO C/O CP or SINCLAIR. Will monitor.
[2020-05-30 05:00] VITALS: BP 142/91; PULSE 71; RESP 20; TEMP 35.9; O2SAT 97
[2020-05-30 06:31] LABS: Add Manual Diff / Slide Review NO; Basophils Absolute Auto 0 /uL (0-100); Basophils Percent Auto 0.8 % (0-2); Eosinophils Absolute Auto 100 /uL (0-450); Eosinophils Percent Auto 2.6 % (2-4); Hematocrit 46.3 % (41-53); Hemoglobin 15.8 g/dL (13.5-17.5); Lymphocytes Absolute Auto 1300 /uL (1100-4500); Mean Corpuscular HGB Conc 34.2 % (30-36); Monocytes Absolute Auto 400 /uL (0-900); Monocytes Percent Auto 7.5 % (3-14); Neutrophils Absolute Auto 3700 /uL (1500-7000); Neutrophils Percent Auto 66.1 % (50-75); Platelet Count 142 X10^3/uL (150-400); Red Blood Cell Count 5.45 X10^6/uL (4.5-5.9); White Blood Cell Count 5.7 X10^3/uL (4.5-11.0)
[2020-05-30 06:38] LABS: BUN Creatinine Ratio 17.8 (6-22); Blood Urea Nitrogen 18 mg/dL (9-20); Carbon Dioxide 27 mmol/L (22-32); Chloride 103 mmol/L (98-107); Cholesterol 180 mg/dL (140-199); Estimated Glomerular Filt Rate > 60.0 mL/min (>60); Glucose 110 mg/dL (70-100); HDL Cholesterol 23 mg/dL (40-60); HEMOLYSIS < 15 (0-50); LDL Cholesterol Calculated 122 mg/dL (<100); Potassium 4.1 mmol/L (3.4-5.1); Sodium 135 mmol/L (137-145); Triglycerides 174 mg/dL (35-150)
[2020-05-30 06:43] LABS: Hemoglobin A1C% w Est Avg Glu 5.6 % (4.0-6.0)
[2020-05-30 07:00] VITALS: O2SAT 96
[2020-05-30 07:22] LABS: TSH w/ Reflex to FT4 1.59 uIU/mL (0.47-4.68)
[2020-05-30 08:30] VITALS: BP 152/91; PULSE 62; RESP 14; TEMP 36.4; O2SAT 96
--- NOTE | 2020-05-30 08:32 | PM.DS.1 ---
History of Present Illness History of Present Illness Chief complaint: R Arm, Face, Tongue Numbness Narrative: Mr. Brandan Price is a 59-year-old male with a past medical history of ocular migraines and GERD who presents to the hospital with complaints of right [place] and right arm numbness. The patient states his symptoms began 1 hour prior to arrival and had mostly resolved continue to persist with pins and needles to the right face. Patient reports having a similar episode yesterday evening that lasted for approximately 2-3 hours and completely resolving. The patient endorses a history of migraines originally presenting as severe headache with associated nausea vomiting was trialed that later progressed to an ocular manifestation with scotomas. The patient states that the episode yesterday in today's episode appeared to be the same in presentation only today's event is not completely resolved. The patient denies complaints of headache but does report right eye aching. He denies photophobia or phonophobia. He has had no neck or back pain. He denies complaints of ataxia, speech difficulties or difficulty swallowing. 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 The patient denies recent complaints of illness, flu or cold symptoms and has had no fevers or chills, nasal congestion or sore throat. Denies chest pain or palpitations, he reports undergoing a full battery of cardiac testing due to his pronounced family history of cardiovascular disease.. Reports no shortness of breath cough or wheezing. He has no abdominal pain and has had no nausea vomiting and denies diarrhea or constipation. The patient is independent in all activities daily living and uses no assistive devices. Upon arrival to the ER the patient is afebrile with temperature 98.0?, heart rate of 70, blood pressure 152/72, respirations 16 saturating 98% on room air. Patient had a CT of the brain which finds no acute abnormalities other identifies a prominent vessel in the medial left frontal lobe. CT angio is unremarkable for intracranial arterial abnormalities. MRI of the brain stroke protocol of finds no acute or chronic infarct, small focus of increased T2 signal with associated 3 mm cyst in the anterior right temporal lobe, finding could represent a neoplastic process, no intracranial hemorrhage, mild diffuse cerebral volume loss, minimal frontal subcortical white matter chronic microvascular ischemic changes. On laboratory analysis the patient has white count of 5.5, hemoglobin is 17.0, hematocrit of 49.5 and platelets 106. Has a PT of 12 1, INR 1.0 and PTT of 33. His electrolytes are all within normal limits has a BUN of 20 and a creatinine of 1.06. His nonfasting glucose is 104. Liver functions are all within normal limits. His total CK is 119 with this CK-MB of 1.26, with an index of 1.1. Troponin is negative at less than 0.012. Urinalysis negative for infection and UDS negative. The patient is admitted to the medicine service for further evaluation neurological deficits concerning for TIA versus complex migraine. Discharge Providers Provider Date of admission: 05/29/20 12:27 Discharge Date: 05/30/20 Consults: 05/29/20 13:33 Consult to Discharge Planning Routine Comment: Consult to Occupational Therapy Evaluate & Treat Comment: Physician Instructions: Evaluate and treat Consult to Physical Therapy Evaluate & Treat Comment: Physician Instructions: Evaluate and Treat Consult to Speech Therapy Evaluate & Treat Comment: Physician Instructions: Evaluate and treat Discharge provider: Chano Up MD Summary Hospital Course Discharge Diagnosis: 1. 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 MRI finding of 3 mm lesion in the anterior right temporal lobe, undetermined significance Hospital Course: Patient had resolution of presenting symptoms of right facial and upper extremity numbness and tingling. He did not have headache with this. He has history of ocular migraines presenting with scotomas and vision loss with only mild headache. His MRI was negative for old or acute CVA. He has a 3 mm lesion in the anterior right temporal lobe of undetermined significance and not the cause of his presenting symptoms. His head CTA was normal. He has resolution of his symptoms. Patient's presentation is most consistent with hemiplegic migraine. He did have a normal myocardial perfusion stress test and echo in the past year. Patient will follow-up with PCP. I have recommended he get referral to neurosurgeon for evaluation of the right temporal lobe lesion. Status at Discharge Cognitive/behavioral status at discharge: oriented Functional status at discharge: independent ambulation Overall status at discharge: patient is back to baseline Time Spent with Patient Time spent: Less than 30 minutes Exam Vital Signs (past 8 hours): - 05/30/20 05:00 Temperature 96.6 F L Pulse Rate 71 Respiratory Rate 20 Blood Pressure 142/91 H Pulse Oximetry 97 Oxygen Delivery Method Room Air Objective Labs Result Diagrams: 05/30/20 05:53 05/30/20 05:53 Labs: Laboratory Results - last 24 hr 05/29/20 05/29/20 05/29/20 10:15 10:15 10:15 WBC 5.5 RBC 5.77 Hgb 17.0 Hct 49.5 MCV 85.7 MCH 29.4 MCHC 34.3 RDW 13.3 Plt Count 156 Neut % (Auto) 62.8 Lymph % (Auto) 25.8 Wilkinson % (Auto) 8.3 Eos % (Auto) 2.3 Baso % (Auto) 0.8 Neut # (Auto) 3400 Lymph # (Auto) 1400 Wilkinson # (Auto) 500 Eos # (Auto) 100 Baso # (Auto) 0 PT 12.1 INR 1.0 APTT 33 Sodium 138 Potassium 4.2 Chloride 104 Carbon Dioxide 29 BUN 20 Creatinine 1.06 Estimated GFR > 60.0 BUN/Creatinine Ratio 18.9 Glucose 104 H Hemoglobin A1c Calcium 9.4 Total Bilirubin 0.7 AST 38 ALT 49 Alkaline Phosphatase 67 Total Creatine Kinase 119 CK-MB (CK-2) 1.26 CK-MB (CK-2) Rel Index 1.1 L Troponin I < 0.012 Total Protein 7.6 Albumin 4.3 Globulin 3.3 Albumin/Globulin Ratio 1.3 Triglycerides Cholesterol LDL Cholesterol, Calc HDL Cholesterol TSH Urine Color Urine Appearance Urine pH Ur Specific [place] Urine Protein Urine Glucose (UA) Urine Ketones Urine Occult Blood Urine Nitrate Urine Bilirubin Urine Urobilinogen Ur Leukocyte Esterase Urine RBC Urine WBC Urine Bacteria Ur Culture Indicated? Micro UA Comment U Opiates 300ng/mL cut Ur Oxycodone Screen Urine Methadone Screen Ur Barbiturates Screen U Tricyclic Antidepress Ur Phencyclidine Scrn Ur Amphetamines Screen U Methamphetamines Scrn Ur MDMA Scrn (Ecstasy) U Benzodiazepines Scrn Urine Cocaine Screen U Marijuana (THC) Screen COVID-19 PCR 05/29/20 05/29/20 05/29/20 11:10 11:35 11:35 WBC RBC Hgb Hct MCV MCH MCHC RDW Plt Count Neut % (Auto) Lymph % (Auto) [place] % (Auto) Eos % (Auto) Baso % (Auto) Neut # (Auto) Lymph # (Auto) [place] # (Auto) Eos # (Auto) Baso # (Auto) PT INR APTT Sodium Potassium Chloride Carbon Dioxide BUN Creatinine Estimated GFR BUN/Creatinine Ratio Glucose Hemoglobin A1c Calcium Total Bilirubin AST ALT Alkaline Phosphatase Total Creatine Kinase CK-MB (CK-2) CK-MB (CK-2) Rel Index Troponin I Total Protein Albumin Globulin Albumin/Globulin Ratio Triglycerides Cholesterol LDL Cholesterol, Calc HDL Cholesterol TSH Urine Color Yellow Urine Appearance Clear Urine pH 7.5 Ur Specific [place] <=1.005 Urine Protein Negative Urine Glucose (UA) Negative Urine Ketones Negative Urine Occult Blood Negative Urine Nitrate Negative Urine Bilirubin Negative Urine Urobilinogen 0.2 Ur Leukocyte Esterase Negative Urine RBC None seen Urine WBC None seen Urine Bacteria None seen Ur Culture Indicated? Cult not indicated Micro UA Comment Microscopic normal U Opiates 300ng/mL cut Negative Ur Oxycodone Screen Negative Urine Methadone Screen Negative Ur Barbiturates Screen Negative U Tricyclic Antidepress Negative Ur Phencyclidine Scrn Negative Ur Amphetamines Screen Negative U Methamphetamines Scrn Negative Ur MDMA Scrn (Ecstasy) Negative U Benzodiazepines Scrn Negative Urine Cocaine Screen Negative U Marijuana (THC) Screen Negative COVID-19 PCR Negative 05/30/20 05/30/20 05/30/20 05:53 05:53 05:53 WBC 5.7 RBC 5.45 Hgb 15.8 Hct 46.3 MCV 85.0 MCH 29.0 MCHC 34.2 RDW 13.0 Plt Count 142 L Neut % (Auto) 66.1 Lymph % (Auto) 23.0 L [place]kinson % (Auto) 7.5 Eos % (Auto) 2.6 Baso % (Auto) 0.8 Neut # (Auto) 3700 Lymph # (Auto) 1300 [place] # (Auto) 400 Eos # (Auto) 100 Baso # (Auto) 0 PT INR APTT Sodium 135 L Potassium 4.1 Chloride 103 Carbon Dioxide 27 BUN 18 Creatinine 1.01 Estimated GFR > 60.0 BUN/Creatinine Ratio 17.8 Glucose 110 H Hemoglobin A1c 5.6 Calcium 9.0 Total Bilirubin AST ALT Alkaline Phosphatase Total Creatine Kinase CK-MB (CK-2) CK-MB (CK-2) Rel Index Troponin I Total Protein Albumin Globulin Albumin/Globulin Ratio Triglycerides 174 H Cholesterol 180 LDL Cholesterol, Calc 122 H HDL Cholesterol 23 L TSH Urine Color Urine Appearance Urine pH Ur Specific [place] Urine Protein Urine Glucose (UA) Urine Ketones Urine Occult Blood Urine Nitrate Urine Bilirubin Urine Urobilinogen Ur Leukocyte Esterase Urine RBC Urine WBC Urine Bacteria Ur Culture Indicated? Micro UA Comment U Opiates 300ng/mL cut Ur Oxycodone Screen Urine Methadone Screen Ur Barbiturates Screen U Tricyclic Antidepress Ur Phencyclidine Scrn Ur Amphetamines Screen U Methamphetamines Scrn Ur MDMA Scrn (Ecstasy) U Benzodiazepines Scrn Urine Cocaine Screen U Marijuana (THC) Screen COVID-19 PCR 05/30/20 05:53 WBC RBC Hgb Hct MCV MCH MCHC RDW Plt Count Neut % (Auto) Lymph % (Auto) [place] % (Auto) Eos % (Auto) Baso % (Auto) Neut # (Auto) Lymph # (Auto) [place] # (Auto) Eos # (Auto) Baso # (Auto) PT INR APTT Sodium Potassium Chloride Carbon Dioxide BUN Creatinine Estimated GFR BUN/Creatinine Ratio Glucose Hemoglobin A1c Calcium Total Bilirubin AST ALT Alkaline Phosphatase Total Creatine Kinase CK-MB (CK-2) CK-MB (CK-2) Rel Index Troponin I Total Protein Albumin Globulin Albumin/Globulin Ratio Triglycerides Cholesterol LDL Cholesterol, Calc HDL Cholesterol TSH 1.59 Urine Color Urine Appearance Urine pH Ur Specific [place] Urine Protein Urine Glucose (UA) Urine Ketones Urine Occult Blood Urine Nitrate Urine Bilirubin Urine Urobilinogen Ur Leukocyte Esterase Urine RBC Urine WBC Urine Bacteria Ur Culture Indicated? Micro UA Comment U Opiates 300ng/mL cut Ur Oxycodone Screen Urine Methadone Screen Ur Barbiturates Screen U Tricyclic Antidepress Ur Phencyclidine Scrn Ur Amphetamines Screen U Methamphetamines Scrn Ur MDMA Scrn (Ecstasy) U Benzodiazepines Scrn Urine Cocaine Screen U Marijuana (THC) Screen COVID-19 PCR Discharge Plan Discharge Plan Patient Disposition: Home Provider Discharge Comment: We believe you had a hemiplegic migraine. Have PCP refer you to neurosurgeon for evaluation of 3 mm lesion in the right temporal lobe. Discharge orders & Medications Prescriptions: Continued dextroamphetamine-amphetamine [Adderall XR] 10 mg Capsule,Extended Release 24hr 10 mg PO QAM RF: 0 Diet/Activity/Treatments Diet: Diet as Tolerated Discharge Data Attending Provider: Nemo Gonzalez Admit Date/Time: 05/29/20 12:27 Quality VTE Deep Vein Thrombosis/Pulmonary Embolism Present on Admission: No
[2020-05-30] MEDS: SODIUM CHLORIDE 0.9% FLUSH 10 ML IV (09:20)
[2020-05-30] MEDS: ENOXAPARIN 40 MG/0.4 ML SYRINGE SUBCUT (09:20)
[2020-05-30] MEDS: ASPIRIN EC 81 MG TABLET PO (09:20)
--- NOTE | 2020-05-30 09:22 | OT.IP.EVAL ---
Past Medical History (Last Reviewed 05/30/20 @ 04:27 by CALEB Gracia) Attention deficit disorder (Acute) GERD (gastroesophageal reflux disease) (Acute) Ocular migraine (Acute) Surgical History (Last Reviewed 05/30/20 @ 04:27 by CALEB Gracia) History of colonoscopy (Acute) History of umbilical hernia repair (Acute) History of vein stripping (Acute) Occupational Therapy Inpatient Evaluation/Re-Eval M1 PT/OT-IP Prior Functional Status Start: 05/29/20 16:14 Freq: NEEDED Status: Active Protocol: Document 05/30/20 11:28 CGR (Rec: 05/30/20 11:35 CGR [email or web address]) Medical Review Prior Functional Status Medical History Reviewed Yes Communication able to make needs known Mobility and Gait pt stated that he is independent with all mobilities and ambulation without AD Activities of Daily Living and IADL's pt was IND for all ADLs without AD. Social History Household Members spouse Living Arrangements House Number of Floors (Floors) One Floor Number of Stairs To Enter/Railing? 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 M2 OT-IP Current Condition Start: 05/30/20 11:27 Freq: Status: Active Protocol: Document 05/30/20 11:28 CGR (Rec: 05/30/20 11:35 CGR [email or web address]) Occupational Therapy Current Condition Current Condition Evaluation Date 05/30/20 Treatment Diagnosis R tongue and arm numbness Diagnosis Onset Date 05/29/20 M3 OT- IP Subjective and Pain Start: 05/30/20 11:27 Freq: Status: Active Protocol: Document 05/30/20 11:28 CGR (Rec: 05/30/20 11:35 CGR [email or web address]) OT- Subjective Occupational Therapy Visit Type Type Initial Evaluation Visit Start Time 09:12 Visit Stop Time 09:22 Total Visit Minutes 10 OT Pain Assessment Pain When Pain Assessed At Rest Pain Present Pain Present Denied Pain M4 OT- IP ADL's Start: 05/30/20 11:27 Freq: Status: Active Protocol: Document 05/30/20 11:28 CGR (Rec: 05/30/20 11:35 CGR [email or web address]) OT [id number] General Evaluation Self-Feeding Ability Independent Comments OT Self-Feeding Comments breakfast upon first attempt OT ADL-Grooming General Evaluation Grooming Ability Independent OT ADL-Oral Care General Eval Oral Care Ability Independent Areas of Assistance Brushing Teeth Comments Oral Care Comments standing at sink OT ADL-Dressing General Eval Upper Body Dressing Ability Independent Lower Body Dressing Ability Independent Areas Needing Assistance Socks,Shoes OT ADL-Toileting General Evaluation Toileting Ability Independent OT ADL-Bathing Comments OT Bathing Comments Not performed M5 OT- IP IADL's Start: 05/30/20 11:27 Freq: Status: Active Protocol: Document 05/30/20 11:28 CGR (Rec: 05/30/20 11:35 CGR [email or web address]) OT-Instrumental Activities of Daily Living Deficits IADL Deficits Identified No Deficits Home Safety Awareness Awareness of Need for Assistance at Home Good Awareness Ability to Problem Solve Emergency Able to Problem Solve Situations Medication Management Medication Management No Deficits Identified Money Management Money Management No Deficits Identified Meal Preparation Meal Preparation No Deficits Identified 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 No Deficits Identified M6 OT- IP Functional Cognition Start: 05/30/20 11:27 Freq: Status: Active Protocol: Document 05/30/20 11:28 CGR (Rec: 05/30/20 11:35 CGR [email or web address]) Cognitive Factors Limiting Selfcare Function Cognitive Ability Level of Alertness Alert Patient Orientation Name,Age,Birthday,Month,Date, Year,Day of Week,Place, Situation Attention Span Ability Capable of Focused Attention, Capable of Sustained Attention Ability to Follow Commands Able to Follow Multi-Step Commands Memory Description No Deficits Noted OT- Vision and Hearing OT- Hearing Assessment OT- Hearing Assessment WFL OT- Vision Assessment Visual Acuity Glasses All The Time Visual Attentiveness WFL Occular Pursuits WFL Visual Convergence WFL Vision Assessment Comments Pt wears bifocals wtih prisims M7 OT- IP Mobility and Balance Start: 05/30/20 11:27 Freq: Status: Active Protocol: Document 05/30/20 11:28 CGR (Rec: 05/30/20 11:35 CGR [email or web address]) OT- Bed Mobility Assessment Rolling Level of Assistance Independent Supine to Sit Supine to Sit Assist Independent Sit to Supine Sit to Supine Assist Independent Scooting Scooting to Edge of Bed Independent OT-Transfer Assessment Sit to and From Stand Sit to and from Stand Independent Transfers Transfer Ability Independent Technique Transfer Destination Bed,Chair,Toilet Transfer Technique Stand Step Pivot Devices Transfer Assistive Devices None OT- Gait Assessment Gait Gait Assistance Required: Independent Assistive Devices Assistive Device None OT- Balance Assessment Sitting Balance and Reactions Static Sitting Balance Ability Normal Dynamic Sitting Balance Ability Normal M8 OT- IP Objective Assessments Start: 05/30/20 11:27 Freq: Status: Active Protocol: Document 05/30/20 11:28 CGR (Rec: 05/30/20 11:35 CGR [email or web address]) OT Gross Range of Motion Upper Extremity Range of Motion Assessment Within Functional Limits OT Strength Upper Extremity Strength Assessment Within Functional Limits Comments Strength Comments grossly 4+/5 OT- Coordination Assessment Upper Extremity Finger to Nose Test Within Functional Limits Finger Tapping Test Within Functional Limits OT-Muscle Tone Assessment Muscle Tone WNL Yes OT Sensation Assessment Comments Summary Comments Pt reports typical sensation at this time Edema Edema Absent M9 OT- IP Assessment and Plan Start: 05/30/20 11:27 Freq: Status: Active Protocol: Document 05/30/20 11:28 CGR (Rec: 05/30/20 11:35 CGR [email or web address]) OT Summary Assessment and Plan Potential Rehabilitation Potential Excellent Analytic Complexity at Evaluation Low Summary Progress Towards Goals Goals Met Assessment Summary Pt presents as a low complexity evaluation s/p admit for R tongue and arm numbness. Pt is performing at his baseline of IND and with no further symptoms. No further OT needs. Frequency of Treatment Frequency Of Treatment Discharge Discharge Recommendations OT Discharge Recommendations Home Transportation Needs at Discharge Private Vehicle
--- NOTE | 2020-05-30 10:54 | CM.DANOTE ---
I went to patients room to discuss discharge and found him dressed and awaiting his work note from the nurse. He had been discharged and was ready to go home. He said there was no need to talk to me because he was ready to, get back to my life. Denied any needs currently or once at home. RN was acquiring his work note.
--- NOTE | 2020-05-30 10:57 | PC.NURSE ---
Day shift note: Patient awake, alert, and pleasantly cooperative. Ambulating independently in room, steady coordinated gait. No sensory or motor deficits noted. Clear speech. Discharge instructions given to patient and , discussed importance of F/U with PMD for neurosurgery referral, stroke like s/sx, dietary modifications, and activity. Both verbalized understanding of instructions. Home via private vehicle accompanied by . Belongings including wallet with patient.
== END 2020-05-30 11:11 | disposition home or self-care (01) ==
LOC: ED 12:24 → AC 12:28
PROVIDERS: Nurse Practitioner Adult Health; Admitting Provider Internal Medicine; Emergency Provider Emergency Medicine; Referring Provider Emergency Medicine; Visit Provider Internal Medicine
DX: R29.818 Other symptoms and signs involving the nervous system (principal); R93.0 Abnormal findings on diagnostic imaging of skull and head, not elsewhere classified; G43.B0 Ophthalmoplegic migraine, not intractable; K21.9 Gastro-esophageal reflux disease without esophagitis; F98.8 Other specified behavioral and emotional disorders with onset usually occurring in childhood and adolescence; Z11.59 Encounter for screening for other viral diseases
CPT/HCPCS: 36415; 70450; 70496; 70498; 70548; 70553; 80048; 80053; 80061; 80305; 81001; 82550; 82553; 82962; 83036; 84443; 84484; 85025; 85610; 85730; 87635; 93005; 96360; 96361; 96372; 97161; 97165; 99285; G0378; A9579; J1650